=== PATIENT | female | born 1980 ===

== ENCOUNTER → 2020-09-06 | Day surgery (SDC) | payer OTHER ==
[~2020-09-06] VITALS: Ht 154.9 cm; Wt 74.4 kg
[~2020-09-06] MED LIST: ALDACTONE25 MG PO; AMBIEN10 MG PO; ESOMEPRAZOLE MA20 MG PO; IBUPROFEN800 MG PO; K-DUR20 MEQ PO; PERCOCET 5-3251 EACH PO; TORSEMIDE20 MG PO; XANAX0.5 MG PO
[2020-09-06 10:12] LABS: BASOPHIL 0.4 % (0-2); EOSINOPHIL 1.2 % (0-5); HCT 43.7 % (37.0-47.0); LYMPHOCYTE 24.8 % (15-48); MCH 30.1 pg (25.0-31.0); MCHC 34.3 g/dL (32.0-36.0); MCV 87.8 fL (78.0-100.0); MONOCYTE 5.1 % (0-12); MPV 9.8 fL (6.0-9.5); NEUTROPHIL 68.1 % (41-80); NRBC 0; PLT 316 K/uL (150-400); RBC 4.98 M/uL (4.20-5.40); RDW 13.8 % (11.5-14.0)
== END | disposition home or self-care (01) ==
LOC: FAS 09:03
PROVIDERS: Oral & Maxillofacial Surgery
DX: K02.9 Dental caries, unspecified (principal); K04.7 Periapical abscess without sinus; J45.909 Unspecified asthma, uncomplicated; E78.5 Hyperlipidemia, unspecified; F41.9 Anxiety disorder, unspecified; K21.9 Gastro-esophageal reflux disease without esophagitis; G43.909 Migraine, unspecified, not intractable, without status migrainosus; M19.90 Unspecified osteoarthritis, unspecified site; Z79.899 Other long term (current) drug therapy; Z79.891 Long term (current) use of opiate analgesic; Z79.51 Long term (current) use of inhaled steroids; F17.210 Nicotine dependence, cigarettes, uncomplicated
CPT/HCPCS: 36415; 71045; 84703; 85025; 93005; J1100; J1170; J2250; J2405; J2704; J2710; J3010; J7120